=== PATIENT | male | born 1960 | race Caucasian/White ===

== ENCOUNTER 2018-08-27 23:12 | Emergency (ER) | payer BC, OTHER ==
[~2018-08-27] VITALS: Ht 177.8 cm; Wt 87.0 kg
[2018-08-27 23:13] VITALS: BP 137/89
--- NOTE | 2018-08-27 23:26 | NUR ---
LEFT SHOULDER AND ARM PAIN "THAT COMES AND GOES" AND NUMBNESS IS LEFT HAND X5 NIGHTS "MY HAND FEELS LIKE IT IS FALLING ASLEEP." BILATERAL HAND ARC WELDER APPRENTICE STRONG
--- NOTE | 2018-08-27 23:38 | NUR ---
EKG DONE IN TRIAGE
[2018-08-27] MEDS ORDERED: DIAZEPAM 5 MG TABLET ONE (23:39)
[2018-08-27] MEDS: DIAZEPAM 5 MG TABLET PO ONE (23:41)
[2018-08-27 23:58] LABS: BASOPHILS # (AUTO) 0.02 x10^3/uL (0-0.1); BASOPHILS % (AUTO) 0 % (0-1); EOSINOPHILS # (AUTO) 0.19 x10^3/uL (0-0.4); EOSINOPHILS % (AUTO) 3 % (1-7); LYMPHOCYTES % (AUTO) 36 % (22-44); MD NO; MEAN CORPUSCULAR HEMOGLOBIN 30.8 pg (27.5-34.5); MEAN CORPUSCULAR VOLUME 90.5 fL (81-97); MEAN PLATELET VOLUME 7.8 fL (7.4-10.4); MONOCYTES # (AUTO) 0.81 x10^3/uL (0.2-0.8); MONOCYTES % (AUTO) 12 % (2-9); NEUTROPHILS # (AUTO) 3.18 x10^3/uL (1.8-6.8); NEUTROPHILS % (AUTO) 48 % (42-75); PLATELET COUNT 233 x10^3/uL (130-400); RED BLOOD COUNT 5.08 x10^6/uL (4.38-5.82)
[2018-08-28 00:05] LABS: ALANINE AMINOTRANSFERASE 87 U/L (12-78); ALBUMIN 4.1 g/dL (3.4-5.0); ANION GAP 8 mmol/L (5-15); CALCIUM 9.1 mg/dL (8.5-10.1); CHLORIDE 106 mmol/L (98-107); CREATININE 1.14 mg/dL (0.7-1.3)
[2018-08-28 00:09] LABS: ALKALINE PHOSPHATASE 117 U/L (45-117); BILIRUBIN,TOTAL 0.4 mg/dL (0.2-1.0); TOTAL PROTEIN 7.1 g/dL (6.4-8.2); TROPONIN I < 0.015 ng/mL (0.000-0.045)
--- NOTE | 2018-08-28 01:36 | NUR ---
Patient/Caregiver given discharge instructions and they have confirmed that they understand the instructions. Patient ambulatory with steady gait.
== END 2018-08-28 01:38 | disposition home or self-care (01) ==
LOC: ED 08-28
DX: M79.632 Pain in left forearm (principal); M79.602 Pain in left arm; M25.532 Pain in left wrist; M54.12 Radiculopathy, cervical region; M25.512 Pain in left shoulder; I10 Essential (primary) hypertension
CPT/HCPCS: 36415; 80053; 84484; 85025; 93005; 99284; J7512

== ENCOUNTER → 2020-03-03 | Outpatient (CLI) | payer BC | END | disposition home or self-care (01) | LOC: CFH 14:45 | PROVIDERS: ATTEND Internal Medicine Cardiovascular Disease | DX: I37.1 Nonrheumatic pulmonary valve insufficiency (principal); I10 Essential (primary) hypertension; I25.10 Atherosclerotic heart disease of native coronary artery without angina pectoris; E78.5 Hyperlipidemia, unspecified; Z85.810 Personal history of malignant neoplasm of tongue | CPT/HCPCS: 93306 ==

== ENCOUNTER 2021-04-01 17:41 | Emergency (ER) | payer BC ==
[~2021-04-01] VITALS: Ht 177.8 cm; Wt 92.2 kg
--- NOTE | 2021-04-01 18:20 | NUR ---
PCXR COMPLETED. PT ON ALL ROOM MONITORING, FAMILY AT BS.
[2021-04-01 18:25] LABS: BASOPHILS % (AUTO) 1 % (0-1); EOSINOPHILS % (AUTO) 2 % (1-7); LYMPHOCYTES % (AUTO) 18 % (22-44); MEAN CORPUSCULAR HEMOGLOBIN 31.7 pg (27.5-34.5); MEAN CORPUSCULAR HGB CONC 34.6 g/dL (33.2-36.2); MEAN PLATELET VOLUME 7.8 fL (7.4-10.4); MONOCYTES % (AUTO) 8 % (2-9); NEUTROPHILS % (AUTO) 72 % (42-75); PLATELET COUNT 198 x10^3/uL (130-400); RED BLOOD COUNT 5.09 x10^6/uL (4.38-5.82)
[2021-04-01] MEDS ORDERED: ASPIRIN 81 MG TABLET CHEW PO ONE (18:30)
[2021-04-01 18:37] LABS: ALBUMIN 4.2 g/dL (3.4-5.0); ANION GAP 3 mmol/L (5-15); CALCIUM 9.8 mg/dL (8.5-10.1); CHLORIDE 108 mmol/L (98-107); CREATININE 1.03 mg/dL (0.7-1.3)
[2021-04-01 18:41] LABS: TROPONIN I < 0.015 ng/mL (0.000-0.045)
[2021-04-01] MEDS ORDERED: ASPIRIN 81 MG TABLET CHEW ONE (18:46)
--- NOTE | 2021-04-01 18:49 | NUR ---
PT UPDATED ON RESULTS. ASA GIVEN PER ERP ORDER. ALL RESULTS BACK, PT FOR RECHECK.
--- NOTE | 2021-04-01 19:11 | NUR ---
RECEIVED REPORT FROM KO CORTEZ
[2021-04-01] MEDS ORDERED: LISI-170 PO (19:43)
[2021-04-01] MEDS ORDERED: ROSU5TAB PO (19:43)
[2021-04-01] MEDS ORDERED: ATEN25TA PO (19:43)
[2021-04-01] MEDS ORDERED: CEFD300C37 PO (19:43)
[2021-04-01] MEDS ORDERED: OMEP-110 PO (19:43)
[2021-04-01] MEDS ORDERED: UBID100C41 PO (19:43)
[2021-04-01] MEDS ORDERED: EZET10TA70 PO (19:43)
[2021-04-01] MEDS ORDERED: METH10TA13 PO (19:43)
--- NOTE | 2021-04-01 20:05 | NUR ---
20 G IV STARTED TO RIGHT FOREARM, PT RESTING ON GURNEY, DENIES NEEDS AT THIS TIME.
[2021-04-01] MEDS ORDERED: MELATONIN 5 MG TABLET PO PRN (21:30)
[2021-04-01] MEDS ORDERED: ENALAPRILAT 1.25 MG/ML, 2ML IVPush PRN (21:30)
[2021-04-01] MEDS ORDERED: DOCUSATE 100 MG CAPSULE PO PRN (21:30)
[2021-04-01] MEDS ORDERED: HEPARIN 5,000 UNITS/ML, 1ML SQ SCH (21:30)
--- NOTE | 2021-04-01 21:59 | NUR ---
pt wanting to leave, ERP at bedside, running another TROP, can leave if its normal.
[2021-04-01 22:00] VITALS: BP 122/72
[2021-04-01 22:36] LABS: TROPONIN I < 0.015 ng/mL (0.000-0.045)
--- NOTE | 2021-04-01 22:55 | NUR ---
Patient given discharge instructions and they have confirmed that they understand the instructions. Patient ambulatory with steady gait.
== END 2021-04-01 22:57 | disposition home or self-care (01) ==
LOC: ED 19:50 → UNDOADMIN 19:58 → EDIP 19:58 → ED 22:57
DX: R07.89 Other chest pain (principal); R00.2 Palpitations; I10 Essential (primary) hypertension
CPT/HCPCS: 36415; 71045; 80048; 82040; 83735; 84443; 84484; 85025; 93005; 99285

== ENCOUNTER 2021-04-20 07:59 | Outpatient (CLI) | payer BC ==
[~2021-04-20 07:59] MED LIST: ATEN25TA PO; CEFD300C37 PO; EZET10TA70 PO; LISI-170 PO; METH10TA13 PO; OMEP-110 PO; ROSU5TAB PO; UBID100C41 PO
== END 2021-04-20 23:59 | disposition home or self-care (01) ==
LOC: CFH 07:59
PROVIDERS: ATTEND Internal Medicine Cardiovascular Disease
DX: I25.10 Atherosclerotic heart disease of native coronary artery without angina pectoris (principal); I77.810 Thoracic aortic ectasia
CPT/HCPCS: 78452; 93017; A9502

== ENCOUNTER 2021-05-03 10:26 | Outpatient (CLI) | payer BC | END 2021-05-03 23:59 | disposition home or self-care (01) | LOC: CVU 10:26 | PROVIDERS: ATTEND Internal Medicine Cardiovascular Disease | DX: I08.8 Other rheumatic multiple valve diseases (principal); I77.810 Thoracic aortic ectasia | CPT/HCPCS: 93306; 93356 ==